=== PATIENT | male | born 1960 | race Caucasian/White ===

== ENCOUNTER 2016-09-16 10:38 | Emergency (ER) | payer BC ==
[~2016-09-16] VITALS: Ht 180.3 cm; Wt 107.7 kg
[2016-09-16 10:49] VITALS: BP 146/91
[2016-09-16 13:17] LABS: CHLORIDE 105 mEq/L (99-109); SODIUM 140 mEq/L (136-147)
[2016-09-16 13:19] LABS: GLUCOSE 108 mg/dL (70-99)
[2016-09-16 13:20] LABS: ANION GAP 13 MEQ/L (2-14); HEMATOCRIT 42.1 % (38.0-50.0); MCH 31.3 PG (29.0-34.0); MCHC 34.9 G/DL (30.0-36.0); MCV 89.6 FL (86-99); MEAN PLAT.VOLUME 10.6 uM^3 (9.0-12.4); PLATELET COUNT 180 K/uL (156-360); RBC DIS.WIDTH-CV 13.5 % (11.8-14.6); RBC DIS.WIDTH-SD 43.4 % (39-53); WHITE BLOOD COUNT 6.8 K/uL (4.1-10.2)
[2016-09-16 13:22] LABS: GFR ESTIMATE (CALCULATED) > 59 mL/min/
[2016-09-16 13:23] LABS: UREA NITROGEN (BUN) 11 mg/dL (9-23)
[2016-09-16] MEDS ORDERED: CLINDAMYCIN HC300 MG PO (14:49)
== END 2016-09-16 15:19 | disposition home or self-care (01) ==
LOC: EME 10:38
PROVIDERS: Emergency Medicine
DX: L03.315 Cellulitis of perineum (principal)
CPT/HCPCS: 74177; 80048; 83605; 85027; 99281; 99284